=== PATIENT | female | born 1990 | race Caucasian/White ===

== ENCOUNTER 2017-09-04 02:48 | Inpatient (IN) | payer BC ==
[2017-09-04] MEDS: Lactated Ringers 1,000 ML IV SCH ×3 (03:15→07:22)
--- NOTE | 2017-09-04 03:15 | PCM.LDHP ---
L&D History of Present Illness - General Date of Service: 09/04/17 Admit Problem/Dx: Admission Diagnosis/Problem Admission Diagnosis/Problem 09/04/17 03:06 38-1/7 week intrauterine , active labor with advanced cervical dilation Source of Information: Patient History Limitations: Reports: No Limitations - History of Present Illness Introduction:: Nuris is a 27-year-old 1 para 0 white female was admitted into labor and delivery with contractions every 3 minutes and advanced cervical dilation of 5 cm, 95% effaced, 0 station, anterior, very soft, bulging bag of hammond. She started in labor last evening and is continued and progressed to the present at which time she is very uncomfortable. 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 Her course was relatively unremarkable. She has a history of asthma but this was stable during the . She plans to breast-feed. She was a centering patient. She declined genetic evaluation. Her group B strep screen was negative. She is desiring an epidural in labor and delivery. She received her flu shot on 2016, T dap was given on 07/01/2017. She is rubella immune First visit occurred on 02/26/2017 at 11 weeks gestational age. Patient was seen on a very regular basis over the course of in the centering program. Her weight was 125 at first visit and 163.4 at last visit for 39.4 pound weight gain. She made good fundal height growth and her vital signs were stable throughout the course. She was seen on 09/03/2017 and had a cervix which was dilated 3 cm, 90% effaced, very soft, -2 station and mid position. Laboratory testing and : Blood is O+. Antibody screen is negative. Hemoglobin on first visit was 13.9 g/dL. Platelets were 231,000 at that time. She is rubella immune. RPR is nonreactive. B surface antigen and HIV assays were negative as were the Chlamydia and gonorrhea tests. Her second trimester labs showed a hemoglobin of 11.5 g deciliter which time she was started on iron supplementation. Platelets are 193,000. Her 1 hour GTT was elevated at 151 and her 3 hour GTT was normal at 79 for fasting blood sugar, 100 for 1 hour, 96 for 2 hour and 50 843 hour. Her group B strep screen was negative. Allergies: Cefzil which causes a rash Medications: 1 Clindamycin phosphate 1% external gel applied to the face for acne twice a day when necessary new prepped 2. vitamins 3. Iron supplementation Past medical history: 1. Acne Past surgical history: 1. Sinus and wisdom teeth surgery Family history: Mother and father alive and well. Mom with miscarriage and demise. 2 brothers and 3 sisters 1 with fertility problems. Maternal grandmother is alive and well for age. Maternal grandfather is alive and well. Paternal grandmother is secondary to old age. Paternal grandfather is secondary to old age. Mom and grandmother have increased nausea from surgery. No anesthesia, bleeding, clotting or other problems noted in the family. Social history: Patient is . is Ariel Gaffney. Patient works in [employer] she does not use any significant loss of alcohol, drugs or tobacco. Review of systems: In general patient has no complaints. has gone well. 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 Changes associated with GI: Negative : Increased fundal height consistent with Neurological: Negative Musculoskeletal: Negative Physical exam: General the patient is a well-developed, well-nourished, pleasant female stated age in no acute distress. Blood pressure on last evaluation clinic was 118/82, weight was 163.4 with pregravid weight of 125. Her height is 5 feet 3. Pregravid body mass index is 22.1 Skin is warm and dry without lesions. HEENT, neck and back within normal limits Lungs are clear with good breath sounds [place]. Cardiovascular exam shows regular rate and rhythm without murmurs. Breast exam is deferred having been done at first visit and found to be normal. Abdomen is protuberant with fundal height of 38 cm, baby in vertex presentation. Cervical exam shows 4 cm dilation/95% effaced/very soft/anterior/0 station. Extremities neurological exam are grossly within normal limits. - Related Data Allergies/Adverse Reactions: Allergies Allergy/AdvReac Type Severity Reaction Status Date / Time No Known Allergies Allergy Verified 08/07/17 21:48 H&P Review of Systems - Review of Systems: Review Of Systems: See Below L&D Exam - Exam Exam: See Below Problem List Initiated/Reviewed/Updated: Yes Assessment/Plan Comment:: Assessment: 1. 38-7 week intrauterine , active labor, advanced cervical dilation 2. Group B strep screen negative 3. Patient desire an epidural for labor analgesia 4. Patient plans to breast-feed 5. Patient is rubella immune 6. Patient has had her flu shot and her T-dap Plan: 1. Anticipate normal spontaneous vaginal delivery 2. Epidural for analgesia 3. Support breast feeding decision.
[2017-09-04] MEDS ORDERED: Lidocaine 1% 50 ML MDV INJECT ONE (03:17)
[2017-09-04] MEDS ORDERED: Sodium Chloride 0.9% 10 ML Syringe FLUSH PRN (03:17)
[2017-09-04] MEDS ORDERED: Nalbuphine 20 MG/1 ML Amp IVPUSH PRN (03:17)
[2017-09-04] MEDS ORDERED: Ondansetron 4 MG/2 ML SDV IVPUSH PRN (03:17)
[2017-09-04] MEDS ORDERED: Nalbuphine 20 MG/1 ML Amp ONE (03:23)
[2017-09-04] MEDS ORDERED: ePHEDrine 50 MG/ML SDV IVPUSH PRN (03:46)
[2017-09-04] MEDS ORDERED: diphenhydrAMINE 50 MG/ML SDV IVPUSH PRN (03:46)
[2017-09-04] MEDS ORDERED: fentaNYL 100 MCG/2 ML SDV EPIDUR PRN (03:46)
[2017-09-04] MEDS ORDERED: Oxytocin/Lactated Ringers 10 UNIT/1,000 ML BAG IV ONE (03:49)
[2017-09-04] MEDS ORDERED: Bupivacaine/fentaNYL/NS 100 ML Bag EPIDUR SCH (04:00)
--- NOTE | 2017-09-04 04:20 | PCM.PREANE ---
Preanesthetic Assessment - Anesthesia/Transfusion/Family Hx Anesthesia History: Prior Anesthesia Without Reaction Family History of Anesthesia Reaction: No Transfusion History: No Prior Transfusion(s) - Review of Systems General: No Symptoms Pulmonary: No Symptoms Cardiovascular: No Symptoms Gastrointestinal: No Symptoms Neurological: No Symptoms Other: Reports: None - Physical Assessment Pulse: 94 O2 Sat by Pulse Oximetry: 98 Respiratory Rate: 22 Blood Pressure: 124/63 Temperature: 36.3 C ASA Class: 2 Mental Status: Alert & Oriented x3 Airway Class: Mallampati = 1 Dentition: Reports: Normal Dentition Thyro-Mental Finger Breadths: 3 Mouth Opening Finger Breadths: 3 ROM/Head Extension: Full Lungs: Clear to Auscultation, Normal Respiratory Effort Cardiovascular: Regular Rate, Regular Rhythm, No Murmurs - Lab Values: Laboratory Last Values WBC 14.57 K/mm3 (3.98-10.04) H 09/04/17 03:20 RBC 4.19 M/mm3 (3.98-5.22) 09/04/17 03:20 Hgb 12.6 gm/L (11.2-15.7) 09/04/17 03:20 Hct 37.5 % (34.1-44.9) 09/04/17 03:20 MCV 89.5 fl (79.4-94.8) 09/04/17 03:20 MCH 30.1 pg (25.6-32.2) 09/04/17 03:20 MCHC 33.6 g/dl (32.2-35.5) 09/04/17 03:20 RDW Std Deviation 45.1 fL (36.4-46.3) 09/04/17 03:20 Plt Count 179 K/mm3 (182-369) L 09/04/17 03:20 MPV 9.7 fl (9.4-12.3) 09/04/17 03:20 Neut % (Auto) 77.5 % (34.0-71.1) H 09/04/17 03:20 Lymph % (Auto) 13.8 % (19.3-51.7) L 09/04/17 03:20 [place] % (Auto) 7.2 % (4.7-12.5) 09/04/17 03:20 Eos % (Auto) 1.0 (0.7-5.8) 09/04/17 03:20 Baso % (Auto) 0.1 % (0.1-1.2) 09/04/17 03:20 Neut # (Auto) 11.30 K/mm3 (1.56-6.13) H 09/04/17 03:20 Lymph # (Auto) 2.01 K/mm3 (1.18-3.74) 09/04/17 03:20 [place] # (Auto) 1.05 K/mm3 (0.24-0.36) H 09/04/17 03:20 Eos # (Auto) 0.14 K/mm3 (0.04-0.36) 09/04/17 03:20 Baso # (Auto) 0.01 K/mm3 (0.01-0.08) 09/04/17 03:20 - Allergies Allergies/Adverse Reactions: Allergies Allergy/AdvReac Type Severity Reaction Status Date / Time No Known Allergies Allergy Verified 08/07/17 21:48 - Anesthesia Plan Pre-Op Medication Ordered: None - Acknowledgements Anesthesia Type Planned: Epidural Pt an Appropriate Candidate for the Planned Anesthesia: Yes Alternatives and Risks of Anesthesia Discussed w Pt/Guardian: Yes Pt/Guardian Understands and Agrees with Anesthesia Plan: Yes PreAnesthesia Questionnaire Respiratory History: Reports: Asthma Gastrointestinal History: Reports: GERD - CURRENT (IN HOUSE) MEDS Current Meds: Current Medications Diphenhydramine HCl (Benadryl) 25 mg IVPUSH Q6H PRN PRN Reason: Itching Ephedrine Sulfate (Ephedrine Sulfate) 5 mg IVPUSH ASDIRECTED PRN PRN Reason: HYPOTENTSION Fentanyl (Sublimaze) 100 mcg EPIDUR Q3H PRN PRN Reason: PAIN Last Admin: 09/04/17 04:14 Dose: 100 mcg Fentanyl/Bupivacaine HCl (Fentanyl/Bupivacaine/Ns 2 Mcg-0.125% 100 Ml) 100 ml EPIDUR ASDIRECTED ERIN Last Admin: 09/04/17 04:15 Dose: 100 ml Lactated Ringer's (Ringers, Lactated) 1,000 mls @ 100 mls/hr IV ASDIRECTED ERIN Nalbuphine HCl (Nubain) 10 mg IVPUSH Q2H PRN PRN Reason: Pain (moderate 4-6) Ondansetron HCl (Zofran) 4 mg IVPUSH Q4H PRN PRN Reason: Nausea/Vomiting Sodium Chloride (Saline Flush) 10 ml FLUSH ASDIRECTED PRN PRN Reason: Keep Vein Open Discontinued Medications Oxytocin/Lactated Ringer's (Pitocin In Lr 10 Units/1,000 Ml) Confirm Administered Dose 10 unit in 1,000 mls @ as directed IV .STK-MED ONE Stop: 09/04/17 03:50 Lidocaine HCl (Xylocaine 1%) 10 ml INJECT ONETIME ONE Stop: 09/04/17 03:18 Nalbuphine HCl (Nubain) Confirm Administered Dose 20 mg .ROUTE .STK-MED ONE Stop: 09/04/17 03:24
--- NOTE | 2017-09-04 10:34 | PCM.SN ---
- Free Text/Narrative Note: Nuris is a 27-year-old 1 now para 1001 white female came in early in the a.m. of 09/04/2017 in active labor. She was 5 cm when she arrived. She is melany every 3 minutes. She had bulging bag of hammond. heart tones were reassuring. Artificial rupture membranes was undertaken and patient was found to have clear amniotic fluid. She progressed steadily and became complete at approximately 0810 hrs. She pushed for approximately 50 minutes at which time she delivered at 0900 hrs. on 09/04/2017. General female weighing 3250 g (7 pounds 2.6 ounces), 20.5 inches in length, Apgars of 8 and 9 in a direct occiput anterior position. She had a left vaginal laceration which extended to a first-degree perineal laceration. She had an epidural in place for analgesia. The vaginal perineal laceration were fixed in routine fashion using 3-0 Monocryl sutures. The epidural was adequate for anesthesia. Patient delivered her placenta intact, complete and normal in appearance. The umbilical cord had 3 vessels. As noted blood loss was 100 mL. Pitocin was used IV after the baby delivered to facilitate increase uterine tone and reduce risk of bleeding. Patient plans to breast-feed. Condition: Good
[2017-09-04] MEDS ORDERED: Acetaminophen 325 MG Tab PO PRN (10:50)
[2017-09-04] MEDS ORDERED: Witch Hazel Medicated Pads 100/Jar TOP PRN (10:50)
[2017-09-04] MEDS ORDERED: Benzocaine/Menthol 20%-0.5% Spray 56 GM Canister TOP PRN (10:50)
[2017-09-04] MEDS ORDERED: Lanolin 100% Cream 7 GM Tube TOP PRN (10:50)
[2017-09-04] MEDS ORDERED: Docusate Sodium 100 MG Cap PO PRN (10:50)
[2017-09-04] MEDS: Ibuprofen 600 MG Tab PO PRN (20:14)
[2017-09-04] MEDS ORDERED: Bupivacaine 0.25% 10 ML SDV ONE (22:22)
[2017-09-05] MEDS: Ibuprofen 600 MG Tab PO PRN (00:27)
--- NOTE | 2017-09-05 06:48 | PCM48HPAN ---
Post Anesthesia Note - EVALUATION WITHIN 48HRS OF ANESTHETIC Vital Signs in Normal Range: Yes Patient Participated in Evaluation: Yes Respiratory Function Stable: Yes Airway Patent: Yes Cardiovascular Function Stable: Yes Hydration Status Stable: Yes Pain Control Satisfactory: Yes Nausea and Vomiting Control Satisfactory: Yes Mental Status Recovered: Yes
[2017-09-05] MEDS ORDERED: Prenatal Multivitamin with Calcium/Folic Acid/Iron Tab PO SCH (09:00)
--- NOTE | 2017-09-06 07:38 | PCM.DCSUM1 ---
Discharge Summary - Hospital Course Free Text/Narrative:: Nuris is a 27-year-old 1 now para 1001 white female came in early in the a.m. of 09/04/2017 in active labor. She was 5 cm when she arrived. She is melany every 3 minutes. She had bulging bag of hammond. heart tones were reassuring. Artificial rupture membranes was undertaken and patient was found to have clear amniotic fluid. She progressed steadily and became complete at approximately 0810 hrs. She pushed for approximately 50 minutes at which time she delivered at 0900 hrs. on 09/04/2017. General female infant weighing 3250 g (7 pounds 2.6 ounces), 20.5 inches in length, Apgars of 8 and 9 in a direct occiput anterior position. She had a left vaginal laceration which extended to a first-degree perineal laceration. She had an epidural in place for analgesia. The vaginal perineal laceration were fixed in routine fashion using 3-0 Monocryl sutures. The epidural was adequate for anesthesia. Patient delivered her placenta intact, complete and normal in appearance. The umbilical cord had 3 vessels. As noted blood loss was 100 mL. Pitocin was used IV after the baby delivered to facilitate increase uterine tone and reduce risk of bleeding. Patient plans to breast-feed. patient is done well. Her hemoglobin is come back at 10.3 and her platelets are 169. She's been afebrile, vital signs stable. She is nursing well , voiding without concerns and ambulating without problems. She is desiring to be discharged. - Discharge Data Discharge Date: 09/06/17 Discharge Disposition: Home, Self-Care 01 Condition: Good - Patient Instructions Diet: Regular Diet as Tolerated (Nursing diet was increased calories and calcium as recommended) Activity: As Tolerated (No intercourse or tampons until bleeding resolves) Driving: May Drive Today Showering/Bathing: May Shower Notify Provider of: Fever, Increased Pain, Swelling and Redness, Nausea and/or Vomiting - Discharge Plan Home Medications: Home Meds Ibuprofen [IJD: Ibuprofen] 600 mg PO Q4H PRN tablet 09/06/17 [Rx] Vit with Ca/FA/Iron [ Plus Iron] 1 each PO DAILY tablet [Rx] Referrals: Melvin Burk MD [Primary Care Provider] - [facility] - Discharge Summary/Plan Comment DC Time >30 min.: No Discharge Summary/Plan Comment: Discharge instructions: 1. Discharge home 2. Diet, activity and follow-up discussed with patient. Recommend nursing diet with increased calories and calcium. 3. Precautions given concern increased pain, bleeding, temperature, signs/ symptoms of DVT/PE. 4. Medications per home medication was printed, discussed with and given to the patient. 5. [facility] Diagnosis: Term -delivered Condition: Good - Patient Data Vitals - Most Recent: Last Vital Signs Temp 36.7 C 09/06/17 04:22 Pulse 57 L 09/06/17 04:22 Resp 12 09/06/17 04:22 BP 132/76 09/06/17 04:22 Pulse Ox 98 09/06/17 04:22 Weight - Most Recent: 74.389 kg Med Orders - Current: Current Medications Acetaminophen (Tylenol) 650 mg PO Q4H PRN PRN Reason: mild pain or fever Benzocaine/Menthol (Dermoplast Pain Relief [place]) 0 gm TOP ASDIRECTED PRN PRN Reason: Perineal Comfort Measure Last Admin: 09/04/17 11:56 Dose: 1 spray Docusate Sodium (Colace) 100 mg PO BID PRN PRN Reason: Constipation Emollient Ointment (Lansinoh Hpa) 0 gm TOP ASDIRECTED PRN PRN Reason: Sore Nipples Ibuprofen (Motrin) 600 mg PO Q4H PRN PRN Reason: Mild pain or fever Last Admin: 09/05/17 00:27 Dose: 600 mg Prenat Multivit/[place]/Iron/Folic Ac ( Plus Iron) 1 each PO DAILY ERIN [place] (Tucks) 1 pad TOP ASDIRECTED PRN PRN Reason: Hemorrhoid pain Last Admin: 09/04/17 11:56 Dose: 1 pad Discontinued Medications Diphenhydramine HCl (Benadryl) 25 mg IVPUSH Q6H PRN PRN Reason: Itching Ephedrine Sulfate (Ephedrine Sulfate) 5 mg IVPUSH ASDIRECTED PRN PRN Reason: HYPOTENTSION Fentanyl (Sublimaze) 100 mcg EPIDUR Q3H PRN PRN Reason: PAIN Last Admin: 09/04/17 04:14 Dose: 100 mcg Fentanyl/Bupivacaine HCl (Fentanyl/Bupivacaine/Ns 2 Mcg-0.125% 100 Ml) 100 ml EPIDUR ASDIRECTED [facility] Last Admin: 09/04/17 04:15 Dose: 100 ml Lactated Ringer's (Ringers, Lactated) 1,000 mls @ 100 mls/hr IV ASDIRECTED [facility] Last Admin: 09/04/17 07:22 Dose: 100 mls/hr Oxytocin/Lactated Ringer's (Pitocin In Lr 10 Units/1,000 Ml) Confirm Administered Dose 10 unit in 1,000 mls @ as directed IV .STK-MED ONE Stop: 09/04/17 03:50 Last Admin: 09/04/17 04:26 Dose: Not Given Lidocaine HCl (Xylocaine 1%) 10 ml INJECT ONETIME ONE Stop: 09/04/17 03:18 Nalbuphine HCl (Nubain) 10 mg IVPUSH Q2H PRN PRN Reason: Pain (moderate 4-6) Last Admin: 09/04/17 04:27 Dose: 10 mg Nalbuphine HCl (Nubain) Confirm Administered Dose 20 mg .ROUTE .STK-MED ONE Stop: 09/04/17 03:24 Last Admin: 09/04/17 04:26 Dose: Not Given Ondansetron HCl (Zofran) 4 mg IVPUSH Q4H PRN PRN Reason: Nausea/Vomiting Sodium Chloride (Saline Flush) 10 ml FLUSH ASDIRECTED PRN PRN Reason: Keep Vein Open *Q Meaningful Use (DIS) - VTE *Q VTE Criteria *Q: - Stroke *Q Stroke Criteria *Q: - AMI *Q AMI Criteria *Q:
== END 2017-09-06 15:12 | disposition home or self-care (01) | DRG 560 ==
LOC: JD.OBCHECK 02:48 → JD.OB 02:58 → JD.OBCHECK 03:06 → JD.MS 09:00 → OBSVTOIN 09:00 → JD.OB 09:00
PROVIDERS: ADMIT Obstetrics & Gynecology; ATTEND Obstetrics & Gynecology
PROC: 10E0XZZ Delivery of Products of Conception, External Approach (ICD-10-PCS; principal; 2017-09-04)
PROC: 0UQGXZZ Repair Vagina, External Approach (ICD-10-PCS; 2017-09-04)
PROC: 10907ZC Drainage of Amniotic Fluid, Therapeutic from Products of Conception, Via Natural or Artificial Opening (ICD-10-PCS; 2017-09-04)
PROC: 00HU33Z Insertion of Infusion Device into Spinal Canal, Percutaneous Approach (ICD-10-PCS; 2017-09-04)
PROC: 3E0R3BZ Introduction of Anesthetic Agent into Spinal Canal, Percutaneous Approach (ICD-10-PCS; 2017-09-04)
DX: O70.0 First degree perineal laceration during delivery (principal); O69.2XX0 Labor and delivery complicated by other cord entanglement, with compression, not applicable or unspecified; Z3A.38 38 weeks gestation of pregnancy; Z37.0 Single live birth
CPT/HCPCS: 01967; 36415; 51702; 59300; 59409; 85025; 85027; A9270-GY; J2300; J3010; J7120

== ENCOUNTER 2021-01-10 03:43 | Inpatient (IN) | payer BC ==
[~2021-01-10 03:43] MED LIST: Bupivacaine 0.25% 10 ML SDV ONE
[2021-01-10] MEDS ORDERED: Oxytocin/Lactated Ringers 10 UNIT/1,000 ML BAG IV SCH ×2 (04:00)
[2021-01-10] MEDS ORDERED: Ondansetron 4 MG/2 ML SDV IVPUSH PRN (04:00)
[2021-01-10] MEDS ORDERED: Nalbuphine 10 MG/1 ML Vial IVPUSH PRN (04:00)
[2021-01-10] MEDS ORDERED: Sodium Chloride 0.9% 10 ML Syringe FLUSH PRN (04:00)
[2021-01-10] MEDS ORDERED: Lidocaine 1% 50 ML MDV INJECT ONE (04:00)
[2021-01-10] MEDS ORDERED: Bupivacaine/fentaNYL/NS 100 ML Bag ONE (04:26)
[2021-01-10] MEDS ORDERED: fentaNYL 100 MCG/2 ML SDV ONE (04:26)
[2021-01-10] MEDS ORDERED: fentaNYL 100 MCG/2 ML SDV EPIDUR PRN (04:36)
[2021-01-10] MEDS ORDERED: Bupivacaine/fentaNYL/NS 100 ML Bag EPIDUR PRN (04:36)
[2021-01-10] MEDS ORDERED: ePHEDrine 50 MG/ML SDV IVPUSH PRN (04:36)
[2021-01-10] MEDS ORDERED: diphenhydrAMINE 50 MG/ML SDV IVPUSH PRN (04:36)
[2021-01-10] MEDS: Lactated Ringers 1,000 ML IV SCH ×2 (04:42→04:45)
--- NOTE | 2021-01-10 05:00 | PCM.PREANE ---
Preanesthetic Assessment - Procedure Proposed Procedure: trevor - Anesthesia/Transfusion/Family Hx Anesthesia History: Prior Anesthesia Reaction Type of Anesthesia Reaction: Excessive Nausea/Vomiting Family History of Anesthesia Reaction: No Transfusion History: No Prior Transfusion(s) - Review of Systems General: No Symptoms Pulmonary: No Symptoms Cardiovascular: No Symptoms Gastrointestinal: No Symptoms Neurological: No Symptoms Other: Reports: None - Physical Assessment Height: 5 ft 3 in Weight: 71.033 kg ASA Class: 2 Mental Status: Alert & Oriented x3 Airway Class: Mallampati = 1 Dentition: Reports: Normal Dentition Thyro-Mental Finger Breadths: 3 Mouth Opening Finger Breadths: 3 ROM/Head Extension: Full Lungs: Clear to Auscultation, Normal Respiratory Effort Cardiovascular: Regular Rate, Regular Rhythm - Lab Values: Laboratory Last Values WBC 11.35 K/mm3 (3.98-10.04) H 01/10/21 04:06 RBC 4.11 M/mm3 (3.98-5.22) 01/10/21 04:06 Hgb 9.9 gm/dl (11.2-15.7) L 01/10/21 04:06 Hct 32.6 % (34.1-44.9) L 01/10/21 04:06 MCV 79.3 fl (79.4-94.8) L D 01/10/21 04:06 MCH 24.1 pg (25.6-32.2) L 01/10/21 04:06 MCHC 30.4 g/dl (32.2-35.5) L 01/10/21 04:06 RDW Std Deviation 42.9 fL (36.4-46.3) 01/10/21 04:06 Plt Count 221 K/mm3 (182-369) 01/10/21 04:06 MPV 9.6 fl (9.4-12.3) 01/10/21 04:06 Neut % (Auto) 73.4 % (34.0-71.1) H 01/10/21 04:06 Lymph % (Auto) 16.9 % (19.3-51.7) L 01/10/21 04:06 [place] % (Auto) 7.2 % (4.7-12.5) 01/10/21 04:06 Eos % (Auto) 1.3 (0.7-5.8) 01/10/21 04:06 Baso % (Auto) 0.2 % (0.1-1.2) 01/10/21 04:06 Neut # (Auto) 8.33 K/mm3 (1.56-6.13) H 01/10/21 04:06 Lymph # (Auto) 1.92 K/mm3 (1.18-3.74) 01/10/21 04:06 [place] # (Auto) 0.82 K/mm3 (0.24-0.36) H 01/10/21 04:06 Eos # (Auto) 0.15 K/mm3 (0.04-0.36) 01/10/21 04:06 Baso # (Auto) 0.02 K/mm3 (0.01-0.08) 01/10/21 04:06 - Allergies Allergies/Adverse Reactions: Allergies Allergy/AdvReac Type Severity Reaction Status Date / Time cefprozil [From Cefzil] Allergy Rash Verified 04/26/19 05:36 - Blood Blood Available: No - Acknowledgements Anesthesia Type Planned: Epidural Pt an Appropriate Candidate for the Planned Anesthesia: Yes Alternatives and Risks of Anesthesia Discussed w Pt/Guardian: Yes Pt/Guardian Understands and Agrees with Anesthesia Plan: Yes PreAnesthesia Questionnaire - Past Health History Medical/Surgical History: Denies Medical/Surgical History Cardiovascular History: Reports: None Respiratory History: Reports: Asthma (sports induced) Gastrointestinal History: Reports: GERD 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: , Spontaneous : 4 Para: 2 - Past Surgical History HEENT Surgical History: Reports: Naso-Sinus Surgery, Oral Surgery - SUBSTANCE USE Tobacco Use Status *Q: Never Tobacco User Tobacco Use Within Last Twelve Months: No Second Hand Smoke Exposure: No Days Per Week of Alcohol Use: 0 Recreational Drug Use History: No - HOME MEDS Home Medications: Home Meds Vit with Ca/FA/Iron [ Plus Iron] 1 each PO DAILY tablet 09/06/17 [Rx] Docusate Sodium [Colace] 100 mg PO BID PRN cap 04/26/19 [Rx] Ibuprofen [Motrin] 600 mg PO Q6H PRN tablet 04/26/19 [Rx] - CURRENT (IN HOUSE) MEDS Current Meds: Current Medications Diphenhydramine HCl (Diphenhydramine 50 Mg/Ml Sdv) 25 mg IVPUSH Q6H PRN PRN Reason: pruritis Ephedrine Sulfate (Ephedrine 50 Mg/Ml Sdv) 5 mg IVPUSH ASDIRECTED PRN PRN Reason: Hypotension Fentanyl (Fentanyl 100 Mcg/2 Ml Sdv) 100 mcg EPIDUR Q3H PRN PRN Reason: Pain Last Admin: 01/10/21 04:41 Dose: 100 mcg Documented by: Fentanyl/Bupivacaine HCl (Bupivacaine/Fentanyl/Ns 100 Ml Bag) 100 ml EPIDUR ASDIRECTED PRN PRN Reason: Pain Last Admin: 01/10/21 04:42 Dose: 100 ml Documented by: Lactated Ringer's (Ringers, Lactated) 1,000 mls @ 100 mls/hr IV ASDIRECTED ERIN Last Admin: 01/10/21 04:45 Dose: 100 mls/hr Documented by: Oxytocin/Lactated Ringer's (Pitocin In Lr 10 Units/1,000 Ml) 10 unit in 1,000 mls @ 500 mls/hr IV .CONTINUOUS ERIN Oxytocin/Lactated Ringer's (Pitocin In Lr 10 Units/1,000 Ml) 10 unit in 1,000 m ls @ 12 mls/hr IV TITRATE ERIN; Protocol Nalbuphine HCl (Nalbuphine 10 Mg/1 Ml Vial) 10 mg IVPUSH Q2H PRN PRN Reason: Pain Ondansetron HCl (Ondansetron 4 Mg/2 Ml Sdv) 4 mg IVPUSH Q4H PRN PRN Reason: Nausea/Vomiting Sodium Chloride (Sodium Chloride 0.9% 10 Ml Syringe) 10 ml FLUSH ASDIRECTED PRN PRN Reason: Keep Vein Open Discontinued Medications Fentanyl (Fentanyl 100 Mcg/2 Ml Sdv) Confirm Administered Dose 100 mcg .ROUTE .STK-MED ONE Stop: 01/10/21 04:27 Fentanyl/Bupivacaine HCl (Bupivacaine/Fentanyl/Ns 100 Ml Bag) Confirm Administered Dose 100 ml .ROUTE .STK-MED ONE Stop: 01/10/21 04:27 Lidocaine HCl (Lidocaine 1% 50 Ml Mdv) 1 ml INJECT ONETIME ONE Stop: 01/10/21 04:01
--- NOTE | 2021-01-10 05:10 | PCM.LDHP ---
L&D History of Present Illness - General Date of Service: 01/10/21 Admit Problem/Dx: Patient Status Order with Admit Dx/Problem 01/10/21 03:50 Patient Status [ADT] Routine Admission Diagnosis/Problem Admission Diagnosis/Problem Labor without complication Source of Information: Patient History Limitations: Reports: No Limitations - History of Present Illness Introduction:: 30-year-old -0-1-2 VIKTOR 01/24/2021 estimated gestational age 38 weeks 0 days presented to labor delivery with contractions every 2 to 3 minutes and 6 cm dilated. Epidural has been placed patient anticipates vaginal delivery. 08/23/2020 blood type O+, antibody screen negative, hemoglobin/hematocrit 13.4/40.9, platelets 237,000, Pap test negative on 06/30/2020. Rubella immune serology nonreactive urine culture mixed karina HIV and hepatitis B surface an tigen negative Chlamydia GC probe negative on 06/30/2020 11/25/2020 hemoglobin/hematocrit 10.2/33.7 platelets 234,001-hour OB glucose screen 165 12/20/2020 testing blood sugar 89, 1 hour 170, 2-hour 143, 3-hour 94. Group B strep - 12/26/2020. Plan delivery. Pain Score: 8 Improves with: Reports: None Worsens with: Reports: None Associated Symptoms: Reports: N - Related Data Allergies/Adverse Reactions: Allergies Allergy/AdvReac Type Severity Reaction Status Date / Time cefprozil [From Cefzil] Allergy Rash Verified 04/26/19 05:36 Home Medications: Home Meds Vit with Ca/FA/Iron [ Plus Iron] 1 each PO DAILY tablet 09/06/17 [Rx] Docusate Sodium [Colace] 100 mg PO BID PRN cap 04/26/19 [Rx] Ibuprofen [Motrin] 600 mg PO Q6H PRN tablet 04/26/19 [Rx] Past Medical History - Past Health History Medical/Surgical History: Denies Medical/Surgical History Cardiovascular History: Reports: None Respiratory History: Reports: Asthma (sports induced) Gastrointestinal History: Reports: GERD [employer] History: Reports: , Spontaneous - Past Surgical History HEENT Surgical History: Reports: Naso-Sinus Surgery, Oral Surgery Social & Family History - Family History Family Medical History: No Pertinent Family History - Tobacco Use Tobacco Use Status *Q: Never Tobacco User Second Hand Smoke Exposure: No - Caffeine Use Caffeine Use: Reports: None - Alcohol Use Days Per Week of Alcohol Use: 0 - Recreational Drug Use Recreational Drug Use: No H&P Review of Systems - Review of Systems: Review Of Systems: See Below General: Reports: No Symptoms HEENT: Reports: No Symptoms Pulmonary: Reports: No Symptoms Cardiovascular: Reports: No Symptoms Gastrointestinal: Reports: No Symptoms Genitourinary: Reports: No Symptoms Musculoskeletal: Reports: No Symptoms Skin: Reports: No Symptoms Psychiatric: Reports: No Symptoms Neurological: Reports: No Symptoms Hematologic/Lymphatic: Reports: No Symptoms Immunologic: Reports: No Symptoms L&D Exam - Exam Exam: See Below - Vital Signs Weight: 156 lb 9.6 oz - OB Specific Fundal Height In cm: 38 Contraction Duration (sec): 60 Contraction Frequency (min): 2 Contraction Intensity: Moderate Movement: Active Heart Tones: Present Heart Tones per Min: 140 Heart Rate (FHR) Variability: Moderate (6-25 bmp) Presentation: Vertex - [place] Score K[place]ney Score Cervix Position: Anterior [place] Score Effacement: >80% [place] Score Dilation: > 5 cm [place] Score 's Station: -1 ,0 - Exam General: Alert, Oriented HEENT: Conjunctiva Clear, Mucosa Moist & [place] Neck: Supple, Trachea Midline Lungs: Clear to Auscultation, Normal Respiratory Effort Cardiovascular: Regular Rate, Regular Rhythm GI/Abdominal Exam: Soft Genitourinary: Normal external exam Extremities: Normal Inspection, Non-Tender, No Pedal Edema, Normal Capillary Refill Skin: Warm, Dry, Intact Psychiatric: Alert, Normal Affect, Normal Mood - Patient Data Lab Results Last 24 hrs: Laboratory Results - last 24 hr 01/10/21 Range/Units 04:06 WBC 11.35 H (3.98-10.04) K/mm3 RBC 4.11 (3.98-5.22) M/mm3 Hgb 9.9 L (11.2-15.7) gm/dl Hct 32.6 L (34.1-44.9) % MCV 79.3 L D (79.4-94.8) fl MCH 24.1 L (25.6-32.2) pg MCHC 30.4 L (32.2-35.5) g/dl RDW Std Deviation 42.9 (36.4-46.3) fL Plt Count 221 (182-369) K/mm3 MPV 9.6 (9.4-12.3) fl Neut % (Auto) 73.4 H (34.0-71.1) % Lymph % (Auto) 16.9 L (19.3-51.7) % [place] % (Auto) 7.2 (4.7-12.5) % Eos % (Auto) 1.3 (0.7-5.8) Baso % (Auto) 0.2 (0.1-1.2) % Neut # (Auto) 8.33 H (1.56-6.13) K/mm3 Lymph # (Auto) 1.92 (1.18-3.74) K/mm3 [place] # (Auto) 0.82 H (0.24-0.36) K/mm3 Eos # (Auto) 0.15 (0.04-0.36) K/mm3 Baso # (Auto) 0.02 (0.01-0.08) K/mm3 Result Diagrams: 01/10/21 04:06 - Problem List (1) 38 weeks gestation of SNOMED Code(s): 42837779 ICD Code: Z3A.38 - 38 WEEKS GESTATION OF Status: Acute Current Visit: No Problem List Initiated/Reviewed/Updated: No Orders Last 24hrs: Active Orders 24 hr Category Date Time Status Patient Status [ADT] Routine ADT 01/10/21 03:50 Active Activity as Tolerated [RC] PFP Care 01/10/21 04:01 Active Communication Order [RC] ASDIRECTED Care 01/10/21 04:01 Active Heart Tones [RC] ASDIRECTED Care 01/10/21 04:01 Active Non Stress Test [RC] PER UNIT ROUTINE Care 01/10/21 03:50 Active Notify Provider [RC] ASDIRECTED Care 01/10/21 04:36 Active Notify Provider [RC] PFP Care 01/10/21 04:01 Active Notify Provider [RC] PRN Care 01/10/21 04:01 Active Peripheral IV Care [RC] . DIRECTED Care 01/10/21 04:01 Active Vital Signs [RC] PER UNIT ROUTINE Care 01/10/21 03:50 Active Regular Diet [DIET] Diet 01/10/21 Breakfast Active CBC WITH AUTO DIFF [HEME] Stat Lab 01/10/21 04:06 Results CORONAVIRUS COVID-19 GEOFF [MOLEC] Stat Lab 01/10/21 04:03 Received RAPID PLASMA REAGIN,RPR [CHEM] Routine Lab 01/10/21 04:06 Received TYPE AND SCREEN [BBK] Stat Lab 01/10/21 04:06 Received Bupivacaine/fentaNYL/NS [fentaNYL/Bupivacaine/NS 2 MCG- Med 01/10/21 04:36 Active 0.125% 100 ML] 100 ml EPIDUR ASDIRECTED PRN Lactated Ringers [Ringers, Lactated] 1,000 ml Med 01/10/21 04:00 Active IV ASDIRECTED Nalbuphine [Nubain] Med 01/10/21 04:00 Active 10 mg IVPUSH Q2H PRN Ondansetron [Zofran] Med 01/10/21 04:00 Active 4 mg IVPUSH Q4H PRN Oxytocin/Lactated Ringers [Pitocin in LR 10 Units/1,000 Med 01/10/21 04:00 Active ML] 10 unit in 1,000 ml IV .CONTINUOUS Oxytocin/Lactated Ringers [Pitocin in LR 10 Units/1,000 Med 01/10/21 04:00 Active ML] 10 unit in 1,000 ml IV TITRATE Sodium Chloride 0.9% [Saline Flush] Med 01/10/21 04:00 Active 10 ml FLUSH ASDIRECTED PRN diphenhydrAMINE [Benadryl] Med 01/10/21 04:36 Active 25 mg IVPUSH Q6H PRN ePHEDrine [ePHEDrine sulfate] Med 01/10/21 04:36 Active 5 mg IVPUSH ASDIRECTED PRN fentaNYL [Sublimaze] Med 01/10/21 04:36 Active 100 mcg EPIDUR Q3H PRN Electronic Heart Tones Ext w TOCO [WOMSER] Oth 01/10/21 04:01 Ordered Routine Electronic Heart Tones Internal [WOMSER] Per Unit Oth 01/10/21 04:01 Ordered Routine Peripheral IV Insertion Adult [OM.PC] Routine Oth 01/10/21 04:01 Ordered Resuscitation Status Routine Resus Stat 01/10/21 03:50 Ordered Medication Orders Diphenhydramine HCl (Diphenhydramine 50 Mg/Ml Sdv) 25 mg IVPUSH Q6H PRN PRN Reason: pruritis Ephedrine Sulfate (Ephedrine 50 Mg/Ml Sdv) 5 mg IVPUSH ASDIRECTED PRN PRN Reason: Hypotension Fentanyl (Fentanyl 100 Mcg/2 Ml Sdv) 100 mcg EPIDUR Q3H PRN PRN Reason: Pain Last Admin: 01/10/21 04:41 Dose: 100 mcg Documented by: KAVYA Fentanyl/Bupivacaine HCl (Bupivacaine/Fentanyl/Ns 100 Ml Bag) 100 ml EPIDUR ASDIRECTED PRN PRN Reason: Pain Last Admin: 01/10/21 04:42 Dose: 100 ml Documented by: KAVAY Lactated Ringer's (Ringers, Lactated) 1,000 mls @ 100 mls/hr IV ASDIRECTED ERIN Last Admin: 01/10/21 04:45 Dose: 100 mls/hr Documented by: Infusion: 01/10/21 04:45 Dose: 100 mls/hr Documented by: Admin: 01/10/21 04:42 Dose: 100 mls/hr Documented by: KAVYA Oxytocin/Lactated Ringer's (Pitocin In Lr 10 Units/1,000 Ml) 10 unit in 1,000 mls @ 500 mls/hr IV .CONTINUOUS ERIN Oxytocin/Lactated Ringer's (Pitocin In Lr 10 Units/1,000 Ml) 10 unit in 1,000 mls @ 12 mls/hr IV TITRATE ERIN; Protocol Nalbuphine HCl (Nalbuphine 10 Mg/1 Ml Vial) 10 mg IVPUSH Q2H PRN PRN Reason: Pain Ondansetron HCl (Ondansetron 4 Mg/2 Ml Sdv) 4 mg IVPUSH Q4H PRN PRN Reason: Nausea/Vomiting Sodium Chloride (Sodium Chloride 0.9% 10 Ml Syringe) 10 ml FLUSH ASDIRECTED PRN PRN Reason: Keep Vein Open Assessment/Plan Comment:: Plan delivery
--- NOTE | 2021-01-10 05:21 | PCM.SN.2 ---
- Free Text/Narrative Note: Amniotomy performed 0515 hrs. clear fluid, cervix around left. Epidural in place functioning well.
--- NOTE | 2021-01-10 06:59 | PCM.DEL ---
L & D Note - General Info Date of Service: 01/10/21 Mother's Due Date: 01/24/21 - Delivery Note Labor: Spontaneous, Augmented by ARM Delivery Outcome: Livebirth (Male liveborn 01/10/2021 at 0640 hrs. weight 3050 g 6 pounds 11.6 ounces Apgars 8/9 SONU) Infant Delivery Method: Spontaneous Vaginal Delivery-Single Infant Delivery Mode: Spontaneous Presentation: Left Occiput Anterior (SONU) Nuchal Cord: None Prep: Povidone-Iodine (Betadine Anesthesia Type: Epidural Episiotomy Type: None Laceration: None Placenta: Intact, Spontaneous (01/10/2021 0644 ) Estimated Blood Loss: 100 Resuscitation Needed: No [place]: Suctioned, Bulb Syringe, Stimulated, Warmed, [place] Used, Warmer Used Provider: Christian Acosta Score 1 min: 8 Score 5 min: 9 - General Info Date of Service: 01/10/21 Functional Status: Reports: Pain Controlled - Review of Systems General: Reports: No Symptoms HEENT: Reports: No Symptoms Pulmonary: Reports: No Symptoms Cardiovascular: Reports: No Symptoms Gastrointestinal: Reports: No Symptoms Genitourinary: Reports: No Symptoms Musculoskeletal: Reports: No Symptoms Skin: Reports: No Symptoms Neurological: Reports: No Symptoms Psychiatric: Reports: No Symptoms - Patient Data Vitals - Most Recent: Last Vital Signs Temp 98.6 F 01/10/21 03:50 Pulse 81 01/10/21 03:50 Resp 16 01/10/21 03:50 BP 134/82 01/10/21 03:50 Pulse Ox 100 01/10/21 03:50 Weight - Most Recent: 156 lb 9.6 oz Lab Results Last 24 Hours: Laboratory Results - last 24 hr 01/10/21 01/10/21 Range/Units 04:03 04:06 WBC 11.35 H (3.98-10.04) K/mm3 RBC 4.11 (3.98-5.22) M/mm3 Hgb 9.9 L (11.2-15.7) gm/dl Hct 32.6 L (34.1-44.9) % MCV 79.3 L D (79.4-94.8) fl MCH 24.1 L (25.6-32.2) pg MCHC 30.4 L (32.2-35.5) g/dl RDW Std Deviation 42.9 (36.4-46.3) fL Plt Count 221 (182-369) K/mm3 MPV 9.6 (9.4-12.3) fl Neut % (Auto) 73.4 H (34.0-71.1) % Lymph % (Auto) 16.9 L (19.3-51.7) % [place] % (Auto) 7.2 (4.7-12.5) % Eos % (Auto) 1.3 (0.7-5.8) Baso % (Auto) 0.2 (0.1-1.2) % Neut # (Auto) 8.33 H (1.56-6.13) K/mm3 Lymph # (Auto) 1.92 (1.18-3.74) K/mm3 [place] # (Auto) 0.82 H (0.24-0.36) K/mm3 Eos # (Auto) 0.15 (0.04-0.36) K/mm3 Baso # (Auto) 0.02 (0.01-0.08) K/mm3 Manual Slide Review Abnormal smear SARS-CoV-2 RNA (GEOFF) Negative (NEGATIVE) Med Orders - Current: Current Medications Diphenhydramine HCl (Diphenhydramine 50 Mg/Ml Sdv) 25 mg IVPUSH Q6H PRN PRN Reason: pruritis Ephedrine Sulfate (Ephedrine 50 Mg/Ml Sdv) 5 mg IVPUSH ASDIRECTED PRN PRN Reason: Hypotension Fentanyl (Fentanyl 100 Mcg/2 Ml Sdv) 100 mcg EPIDUR Q3H PRN PRN Reason: Pain Last Admin: 01/10/21 04:41 Dose: 100 mcg Documented by: Fentanyl/Bupivacaine HCl (Bupivacaine/Fentanyl/Ns 100 Ml Bag) 100 ml EPIDUR ASDIRECTED PRN PRN Reason: Pain Last Admin: 01/10/21 04:42 Dose: 100 ml Documented by: Lactated Ringer's (Ringers, Lactated) 1,000 mls @ 100 mls/hr IV ASDIRECTED ERIN Last Admin: 01/10/21 04:45 Dose: 100 mls/hr Documented by: Oxytocin/Lactated Ringer's (Pitocin In Lr 10 Units/1,000 Ml) 10 unit in 1,000 mls @ 500 mls/hr IV .CONTINUOUS ERIN Oxytocin/Lactated Ringer's (Pitocin In Lr 10 Units/1,000 Ml) 10 unit in 1,000 mls @ 12 mls/hr IV TITRATE ERIN; Protocol Nalbuphine HCl (Nalbuphine 10 Mg/1 Ml Vial) 10 mg IVPUSH Q2H PRN PRN Reason: Pain Ondansetron HCl (Ondansetron 4 Mg/2 Ml Sdv) 4 mg IVPUSH Q4H PRN PRN Reason: Nausea/Vomiting Sodium Chloride (Sodium Chloride 0.9% 10 Ml Syringe) 10 ml FLUSH ASDIRECTED PRN PRN Reason: Keep Vein Open Discontinued Medications Fentanyl (Fentanyl 100 Mcg/2 Ml Sdv) Confirm Administered Dose 100 mcg .ROUTE .STK-MED ONE Stop: 01/10/21 04:27 Fentanyl/Bupivacaine HCl (Bupivacaine/Fentanyl/Ns 100 Ml Bag) Confirm Administered Dose 100 ml .ROUTE .STK-MED ONE Stop: 01/10/21 04:27 Lidocaine HCl (Lidocaine 1% 50 Ml Mdv) 1 ml INJECT ONETIME ONE Stop: 01/10/21 04:01 - Exam General: Alert, Oriented HEENT: Pupils Equal, Mucous Membr. Moist/[place] Neck: Supple Lungs: Clear to Auscultation, Normal Respiratory Effort Cardiovascular: Regular Rate, Regular Rhythm GI/Abdominal Exam: Normal Bowel Sounds, Soft, Non-Tender (Female) Exam: Normal External Exam Extremities: Normal Inspection, Non-Tender, No Pedal Edema, Normal Capillary Refill Skin: Warm, Dry, Intact Psy/Mental Status: Alert, Normal Affect, Normal Mood - Problem List & Annotations (1) 38 weeks gestation of SNOMED Code(s): 60787647 Code(s): Z3A.38 - 38 WEEKS GESTATION OF Status: Acute Current Visit: No (2) Nuchal cord without compression, delivered, current hospitalization SNOMED Code(s): 08936818, 518606992 Code(s): O69.81X0 - LABOR AND DEL COMP BY CORD AROUND NECK, W/O COMPRSN, UNSP Status: Acute Current Visit: Yes (3) Vaginal delivery SNOMED Code(s): 229617492 Code(s): O80 - ENCOUNTER FOR FULL-TERM UNCOMPLICATED DELIVERY Status: Acute Current Visit: No - Problem List Review Problem List Initiated/Reviewed/Updated: No - My Orders Last 24 Hours: My Active Orders 01/10/21 04:00 Lactated Ringers [Ringers, Lactated] 1,000 ml IV ASDIRECTED Nalbuphine [Nubain] 10 mg IVPUSH Q2H PRN Ondansetron [Zofran] 4 mg IVPUSH Q4H PRN Oxytocin/Lactated Ringers [Pitocin in LR 10 Units/1,000 ML] 10 unit in 1,000 ml IV .CONTINUOUS Oxytocin/Lactated Ringers [Pitocin in LR 10 Units/1,000 ML] 10 unit in 1,000 ml IV TITRATE Sodium Chloride 0.9% [Saline Flush] 10 ml FLUSH ASDIRECTED PRN 01/10/21 04:01 Activity as Tolerated [RC] PFP Communication Order [RC] ASDIRECTED Heart Tones [RC] ASDIRECTED Notify Provider [RC] PFP Notify Provider [RC] PRN Peripheral IV Care [RC] . DIRECTED Electronic Heart Tones Ext w TOCO [WOMSER] Routine Electronic Heart Tones Internal [WOMSER] Per Unit Routine Peripheral IV Insertion Adult [OM.PC] Routine 01/10/21 04:06 RAPID PLASMA REAGIN,RPR [CHEM] Routine TYPE AND SCREEN [BBK] Stat 01/10/21 Breakfast Regular Diet [DIET] - Plan Plan:: Plan delivery
[2021-01-10] MEDS ORDERED: Ibuprofen 600 MG Tab PO PRN (07:32)
[2021-01-10] MEDS ORDERED: Acetaminophen 325 MG Tab PO PRN (07:32)
[2021-01-10] MEDS ORDERED: Docusate Sodium 100 MG Cap PO PRN (07:32)
[2021-01-10] MEDS ORDERED: Witch Hazel Medicated Pads 40/Jar TOP PRN (07:32)
[2021-01-10] MEDS ORDERED: Benzocaine/Menthol 20%-0.5% Spray 56 GM Canister TOP PRN (07:32)
--- NOTE | 2021-01-11 09:34 | PCM.DCSUM1 ---
Discharge Summary - Hospital Course Free Text/Narrative:: [place] [facility]IVE L/D Delivery Note Patient Name: ARUNA GAINES Date of : 88 Patient Status: Inpatient Attending Provider: Christian Acosta Date: 01/10/21 06:53 Initialization Date: 01/10/21 06:53 L & D Note - General Info Date of Service: 01/10/21 Mother's Due Date: 01/24/21 - Delivery Note Labor: Spontaneous, Augmented by ARM Delivery Outcome: Livebirth (Male liveborn 01/10/2021 at 0640 hrs. weight 3050 g 6 pounds 11.6 ounces Apgars 8/9 SONU) Infant Delivery Method: Spontaneous Vaginal Delivery-Single Infant Delivery Mode: Spontaneous Presentation: Left Occiput Anterior (SONU) Nuchal Cord: None Prep: Povidone-Iodine (Betadine Anesthesia Type: Epidural Episiotomy Type: None Laceration: None Placenta: Intact, Spontaneous (01/10/2021 0644 ) Estimated Blood Loss: 100 Resuscitation Needed: No [place]: Suctioned, Bulb Syringe, Stimulated, Warmed, [place] Used, Warmer Used Provider: Christian Acosta Score 1 min: 8 Score 5 min: 9 - General Info Date of Service: 01/10/21 Functional Status: Reports: Pain Controlled - Review of Systems General: Reports: No Symptoms HEENT: Reports: No Symptoms Pulmonary: Reports: No Symptoms Cardiovascular: Reports: No Symptoms Gastrointestinal: Reports: No Symptoms Genitourinary: Reports: No Symptoms Musculoskeletal: Reports: No Symptoms Skin: Reports: No Symptoms Neurological: Reports: No Symptoms Psychiatric: Reports: No Symptoms - Patient Data Vitals - Most Recent: Last Vital Signs Temp 98.6 F 01/10/21 03:50 Pulse 81 01/10/21 03:50 Resp 16 01/10/21 03:50 BP 134/82 01/10/21 03:50 Pulse Ox 100 01/10/21 03:50 Weight - Most Recent: 156 lb 9.6 oz Lab Results Last 24 Hours: Laboratory Results - last 24 hr 01/10/21 01/10/21 Range/Units 04:03 04:06 WBC 11.35 H (3.98-10.04) K/mm3 RBC 4.11 (3.98-5.22) M/mm3 Hgb 9.9 L (11.2-15.7) gm/dl Hct 32.6 L (34.1-44.9) % MCV 79.3 L D (79.4-94.8) fl MCH 24.1 L (25.6-32.2) pg MCHC 30.4 L (32.2-35.5) g/dl RDW Std Deviation 42.9 (36.4-46.3) fL Plt Count 221 (182-369) K/mm3 MPV 9.6 (9.4-12.3) fl Neut % (Auto) 73.4 H (34.0-71.1) % Lymph % (Auto) 16.9 L (19.3-51.7) % [place] % (Auto) 7.2 (4.7-12.5) % Eos % (Auto) 1.3 (0.7-5.8) Baso % (Auto) 0.2 (0.1-1.2) % Neut # (Auto) 8.33 H (1.56-6.13) K/mm3 Lymph # (Auto) 1.92 (1.18-3.74) K/mm3 [place] # (Auto) 0.82 H (0.24-0.36) K/mm3 Eos # (Auto) 0.15 (0.04-0.36) K/mm3 Baso # (Auto) 0.02 (0.01-0.08) K/mm3 Manual Slide Review Abnormal smear SARS-CoV-2 RNA (GEOFF) Negative (NEGATIVE) Med Orders - Current: Current Medications Diphenhydramine HCl (Diphenhydramine 50 Mg/Ml Sdv) 25 mg IVPUSH Q6H PRN PRN Reason: pruritis Ephedrine Sulfate (Ephedrine 50 Mg/Ml Sdv) 5 mg IVPUSH ASDIRECTED PRN PRN Reason: Hypotension Fentanyl (Fentanyl 100 Mcg/2 Ml Sdv) 100 mcg EPIDUR Q3H PRN PRN Reason: Pain Last Admin: 01/10/21 04:41 Dose: 100 mcg Documented by: Fentanyl/Bupivacaine HCl (Bupivacaine/Fentanyl/Ns 100 Ml Bag) 100 ml EPIDUR ASDIRECTED PRN PRN Reason: Pain Last Admin: 01/10/21 04:42 Dose: 100 ml Documented by: Lactated Ringer's (Ringers, Lactated) 1,000 mls @ 100 mls/hr IV ASDIRECTED ERIN Last Admin: 01/10/21 04:45 Dose: 100 mls/hr Documented by: Oxytocin/Lactated Ringer's (Pitocin In Lr 10 Units/1,000 Ml) 10 unit in 1,000 mls @ 500 mls/hr IV .CONTINUOUS ERIN Oxytocin/Lactated Ringer's (Pitocin In Lr 10 Units/1,000 Ml) 10 unit in 1,000 mls @ 12 mls/hr IV TITRATE ERIN; Protocol Nalbuphine HCl (Nalbuphine 10 Mg/1 Ml Vial) 10 mg IVPUSH Q2H PRN PRN Reason: Pain Ondansetron HCl (Ondansetron 4 Mg/2 Ml Sdv) 4 mg IVPUSH Q4H PRN PRN Reason: Nausea/Vomiting Sodium Chloride (Sodium Chloride 0.9% 10 Ml Syringe) 10 ml FLUSH ASDIRECTED PRN PRN Reason: Keep Vein Open Discontinued Medications Fentanyl (Fentanyl 100 Mcg/2 Ml Sdv) Confirm Administered Dose 100 mcg .ROUTE .STK-MED ONE Stop: 01/10/21 04:27 Fentanyl/Bupivacaine HCl (Bupivacaine/Fentanyl/Ns 100 Ml Bag) Confirm Administered Dose 100 ml .ROUTE .STK-MED ONE Stop: 01/10/21 04:27 Lidocaine HCl (Lidocaine 1% 50 Ml Mdv) 1 ml INJECT ONETIME ONE Stop: 01/10/21 04:01 - Exam General: Alert, Oriented HEENT: Pupils Equal, Mucous Membr. Moist/[place] Neck: Supple Lungs: Clear to Auscultation, Normal Respiratory Effort Cardiovascular: Regular Rate, Regular Rhythm GI/Abdominal Exam: Normal Bowel Sounds, Soft, Non-Tender (Female) Exam: Normal External Exam Extremities: Normal Inspection, Non-Tender, No Pedal Edema, Normal Capillary Refill Skin: Warm, Dry, Intact Psy/Mental Status: Alert, Normal Affect, Normal Mood - Problem List & Annotations (1) 38 weeks gestation of SNOMED Code(s): 99893084 Code(s): Z3A.38 - 38 WEEKS GESTATION OF Status: Acute Current Visit: No (2) Nuchal cord without compression, delivered, current hospitalization SNOMED Code(s): 73244222, 247743849 Code(s): O69.81X0 - LABOR AND DEL COMP BY CORD AROUND NECK, W/O COMPRSN, UNSP Status: Acute Current Visit: Yes (3) Vaginal delivery SNOMED Code(s): 871233030 Code(s): O80 - ENCOUNTER FOR FULL-TERM UNCOMPLICATED DELIVERY Status: Acute Current Visit: No - Problem List Review Problem List Initiated/Reviewed/Updated: No - My Orders Last 24 Hours: My Active Orders 01/10/21 04:00 Lactated Ringers [Ringers, Lactated] 1,000 ml IV ASDIRECTED Nalbuphine [Nubain] 10 mg IVPUSH Q2H PRN Ondansetron [Zofran] 4 mg IVPUSH Q4H PRN Oxytocin/Lactated Ringers [Pitocin in LR 10 Units/1,000 ML] 10 unit in 1,000 ml IV .CONTINUOUS Oxytocin/Lactated Ringers [Pitocin in LR 10 Units/1,000 ML] 10 unit in 1,000 ml IV TITRATE Sodium Chloride 0.9% [Saline Flush] 10 ml FLUSH ASDIRECTED PRN 01/10/21 04:01 Activity as Tolerated [RC] PFP Communication Order [RC] ASDIRECTED Heart Tones [RC] ASDIRECTED Notify Provider [RC] PFP Notify Provider [RC] PRN Peripheral IV Care [RC] . DIRECTED Electronic Heart Tones Ext w TOCO [WOMSER] Routine Electronic Heart Tones Internal [WOMSER] Per Unit Routine Peripheral IV Insertion Adult [OM.PC] Routine 01/10/21 04:06 RAPID PLASMA REAGIN,RPR [CHEM] Routine TYPE AND SCREEN [BBK] Stat 01/10/21 Breakfast Regular Diet [DIET] - Plan Plan:: Plan delivery HPI Initial Comments: [place] [facility] L/D Delivery Note Patient Name: ARUNA GAINES Date of : 88 Patient Status: Inpatient Attending Provider: Christian Acosta Date: 01/10/21 06:53 Initialization Date: 01/10/21 06:53 L & D Note - General Info Date of Service: 01/10/21 Mother's Due Date: 01/24/21 - Delivery Note Labor: Spontaneous, Augmented by ARM Delivery Outcome: Livebirth (Male liveborn 01/10/2021 at 0640 hrs. weight 3050 g 6 pounds 11.6 ounces Apgars 8/9 SONU) Delivery Method: Spontaneous Vaginal Delivery-Single Infant Delivery Mode: Spontaneous Presentation: Left Occiput Anterior (SONU) Nuchal Cord: None Prep: Povidone-Iodine (Betadine Anesthesia Type: Epidural Episiotomy Type: None Laceration: None Placenta: Intact, Spontaneous (01/10/2021 0644 ) Estimated Blood Loss: 100 Resuscitation Needed: No [place]: Suctioned, Bulb Syringe, Stimulated, Warmed, [place] Used, Warmer Used Provider: Christian Acosta Score 1 min: 8 Score 5 min: 9 - General Info Date of Service: 01/10/21 Functional Status: Reports: Pain Controlled - Review of Systems General: Reports: No Symptoms HEENT: Reports: No Symptoms Pulmonary: Reports: No Symptoms Cardiovascular: Reports: No Symptoms Gastrointestinal: Reports: No Symptoms Genitourinary: Reports: No Symptoms Musculoskeletal: Reports: No Symptoms Skin: Reports: No Symptoms Neurological: Reports: No Symptoms Psychiatric: Reports: No Symptoms - Patient Data Vitals - Most Recent: Last Vital Signs Temp 98.6 F 01/10/21 03:50 Pulse 81 01/10/21 03:50 Resp 16 01/10/21 03:50 BP 134/82 01/10/21 03:50 Pulse Ox 100 01/10/21 03:50 Weight - Most Recent: 156 lb 9.6 oz Lab Results Last 24 Hours: Laboratory Results - last 24 hr 01/10/21 01/10/21 Range/Units 04:03 04:06 WBC 11.35 H (3.98-10.04) K/mm3 RBC 4.11 (3.98-5.22) M/mm3 Hgb 9.9 L (11.2-15.7) gm/dl Hct 32.6 L (34.1-44.9) % MCV 79.3 L D (79.4-94.8) fl MCH 24.1 L (25.6-32.2) pg MCHC 30.4 L (32.2-35.5) g/dl RDW Std Deviation 42.9 (36.4-46.3) fL Plt Count 221 (182-369) K/mm3 MPV 9.6 (9.4-12.3) fl Neut % (Auto) 73.4 H (34.0-71.1) % Lymph % (Auto) 16.9 L (19.3-51.7) % [place] % (Auto) 7.2 (4.7-12.5) % Eos % (Auto) 1.3 (0.7-5.8) Baso % (Auto) 0.2 (0.1-1.2) % Neut # (Auto) 8.33 H (1.56-6.13) K/mm3 Lymph # (Auto) 1.92 (1.18-3.74) K/mm3 [place] # (Auto) 0.82 H (0.24-0.36) K/mm3 Eos # (Auto) 0.15 (0.04-0.36) K/mm3 Baso # (Auto) 0.02 (0.01-0.08) K/mm3 Manual Slide Review Abnormal smear SARS-CoV-2 RNA (GEOFF) Negative (NEGATIVE) Med Orders - Current: Current Medications Diphenhydramine HCl (Diphenhydramine 50 Mg/Ml Sdv) 25 mg IVPUSH Q6H PRN PRN Reason: pruritis Ephedrine Sulfate (Ephedrine 50 Mg/Ml Sdv) 5 mg IVPUSH ASDIRECTED PRN PRN Reason: Hypotension Fentanyl (Fentanyl 100 Mcg/2 Ml Sdv) 100 mcg EPIDUR Q3H PRN PRN Reason: Pain Last Admin: 01/10/21 04:41 Dose: 100 mcg Documented by: Fentanyl/Bupivacaine HCl (Bupivacaine/Fentanyl/Ns 100 Ml Bag) 100 ml EPIDUR ASDIRECTED PRN PRN Reason: Pain Last Admin: 01/10/21 04:42 Dose: 100 ml Documented by: Lactated Ringer's (Ringers, Lactated) 1,000 mls @ 100 mls/hr IV ASDIRECTED ERIN Last Admin: 01/10/21 04:45 Dose: 100 mls/hr Documented by: Oxytocin/Lactated Ringer's (Pitocin In Lr 10 Units/1,000 Ml) 10 unit in 1,000 mls @ 500 mls/hr IV .CONTINUOUS ERIN Oxytocin/Lactated Ringer's (Pitocin In Lr 10 Units/1,000 Ml) 10 unit in 1,000 mls @ 12 mls/hr IV TITRATE ERIN; Protocol Nalbuphine HCl (Nalbuphine 10 Mg/1 Ml Vial) 10 mg IVPUSH Q2H PRN PRN Reason: Pain Ondansetron HCl (Ondansetron 4 Mg/2 Ml Sdv) 4 mg IVPUSH Q4H PRN PRN Reason: Nausea/Vomiting Sodium Chloride (Sodium Chloride 0.9% 10 Ml Syringe) 10 ml FLUSH ASDIRECTED PRN PRN Reason: Keep Vein Open Discontinued Medications Fentanyl (Fentanyl 100 Mcg/2 Ml Sdv) Confirm Administered Dose 100 mcg .ROUTE .STK-MED ONE Stop: 01/10/21 04:27 Fentanyl/Bupivacaine HCl (Bupivacaine/Fentanyl/Ns 100 Ml Bag) Confirm Administered Dose 100 ml .ROUTE .STK-MED ONE Stop: 01/10/21 04:27 Lidocaine HCl (Lidocaine 1% 50 Ml Mdv) 1 ml INJECT ONETIME ONE Stop: 01/10/21 04:01 - Exam General: Alert, Oriented HEENT: Pupils Equal, Mucous Membr. Moist/[place] Neck: Supple Lungs: Clear to Auscultation, Normal Respiratory Effort Cardiovascular: Regular Rate, Regular Rhythm GI/Abdominal Exam: Normal Bowel Sounds, Soft, Non-Tender (Female) Exam: Normal External Exam Extremities: Normal Inspection, Non-Tender, No Pedal Edema, Normal Capillary Refill Skin: Warm, Dry, Intact Psy/Mental Status: Alert, Normal Affect, Normal Mood - Problem List & Annotations (1) 38 weeks gestation of SNOMED Code(s): 04486962 Code(s): Z3A.38 - 38 WEEKS GESTATION OF Status: Acute Current Visit: No (2) Nuchal cord without compression, delivered, current hospitalization SNOMED Code(s): 04840762, 335716384 Code(s): O69.81X0 - LABOR AND DEL COMP BY CORD AROUND NECK, W/O COMPRSN, UNSP Status: Acute Current Visit: Yes (3) Vaginal delivery SNOMED Code(s): 023362689 Code(s): O80 - ENCOUNTER FOR FULL-TERM UNCOMPLICATED DELIVERY Status: Acute Current Visit: No - Problem List Review Problem List Initiated/Reviewed/Updated: No - My Orders Last 24 Hours: My Active Orders 01/10/21 04:00 Lactated Ringers [Ringers, Lactated] 1,000 ml IV ASDIRECTED Nalbuphine [Nubain] 10 mg IVPUSH Q2H PRN Ondansetron [Zofran] 4 mg IVPUSH Q4H PRN Oxytocin/Lactated Ringers [Pitocin in LR 10 Units/1,000 ML] 10 unit in 1,000 ml IV .CONTINUOUS Oxytocin/Lactated Ringers [Pitocin in LR 10 Units/1,000 ML] 10 unit in 1,000 ml IV TITRATE Sodium Chloride 0.9% [Saline Flush] 10 ml FLUSH ASDIRECTED PRN 01/10/21 04:01 Activity as Tolerated [RC] PFP Communication Order [RC] ASDIRECTED Heart Tones [RC] ASDIRECTED Notify Provider [RC] PFP Notify Provider [RC] PRN Peripheral IV Care [RC] . DIRECTED Electronic Heart Tones Ext w TOCO [WOMSER] Routine Electronic Heart Tones Internal [WOMSER] Per Unit Routine Peripheral IV Insertion Adult [OM.PC] Routine 01/10/21 04:06 RAPID PLASMA REAGIN,RPR [CHEM] Routine TYPE AND SCREEN [BBK] Stat 01/10/21 Breakfast Regular Diet [DIET] - Plan Plan:: Plan delivery Brief History: [facility] LIVE . L/D Delivery Note. Patient Name: ARUNA GAINES [facility] Record Number: [id number]. Date of : 88Patient Status: Inpatient. Attending Provider: Christian Acosta Number: [id number]. Date: 01/10/21 06:53Initialization Date: 01/10/21 06:53. L & D Note. - General Info. Date of Service: 01/10/21. Mother's Due Date: 01/24/21. - Delivery Note. Labor: Spontaneous, Augmented by ARM. Delivery Outcome: Livebirth (Male liveborn 01/10/2021 at 0640 hrs. weight 3050 g 6 pounds 11.6 ounces Apgars 8/9 SONU). Infant Delivery Method: Spontaneous Vaginal Delivery-Single. Infant Delivery Mode: Spontaneous. Presentation: Left Occiput Anterior (SONU). Nuchal Cord: None. Prep: Povidone-Iodine (Betadine. Anesthesia Type: Epidural. Episiotomy Type: None. Laceration: None. Placenta: Intact, Spontaneous (01/10/2021 0644 ). Estimated Blood Loss: 100. Resuscitation Needed: No. : Suctioned, Bulb Syringe, Stimulated, Warmed, [place] Used, Warmer Used. Provider: Christian Acosta. Score 1 min: 8. Score 5 min: 9. - General Info. Date of Service: 01/10/21. Functional Status: Reports: Pain Controlled. - Review of Systems. General: Reports: No Symptoms. HEENT: Reports: No Symptoms. Pulmonary: Reports: No Symptoms. Cardiovascular: Reports: No Symptoms. Gastrointestinal: Reports: No Symptoms. Genitourinary: Reports: No Symptoms. Musculoskeletal: Reports: No Symptoms. Skin: Reports: No Symptoms. Neurological: Reports: No Symptoms. Psychiatric: Reports: No Symptoms. - Patient Data. Vitals - Most Recent: Last Vital Signs. Temp 98.6 F 01/10/21 03:50. Pulse 81 01/10/21 03:50. Resp 16 01/10/21 03:50. BP 134/82 01/10/21 03:50. Pulse Ox 100 01/10/21 03:50. Weight - Most Recent: 156 lb 9.6 oz. Lab Results Last 24 Hours: Laboratory Results - last 24 hr. 01/11/2104Range/Units. 04:0304:06. WBC 11.35 H (3.98-10.04) K/mm3. RBC 4.11 (3.98-5.22) M/mm3. Hgb 9.9 L (11.2-15.7) gm/dl. Hct 32.6 L (34.1-44.9) %. MCV 79.3 L D (79.4-94.8) fl. MCH 24.1 L (25.6-32.2) pg. MCHC 30.4 L (32.2-35.5) g/dl. RDW Std Deviation 42.9 (36.4-4 6.3) fL. Plt Count 221 (182-369) K/mm3. MPV 9.6 (9.4-12.3) fl. Neut % (Auto) 73.4 H (34.0-71.1) %. Lymph % (Auto) 16.9 L (19.3-51.7) %. [place] % (Auto) 7.2 (4.7-12.5) %. Eos % (Auto) 1.3 (0.7-5.8). Baso % (Auto) 0.2 (0.1- 1.2) %. Neut # (Auto) 8.33 H (1.56-6.13) K/mm3. Lymph # (Auto) 1.92 (1.18- 3.74) K/mm3. [place] # (Auto) 0.82 H (0.24-0.36) K/mm3. Eos # (Auto) 0.15 (0.04-0.36) K/mm3. Baso # (Auto) 0.02 (0.01-0.08) K/mm3. Manual Slide Review Abnormal smear. SARS-CoV-2 RNA (GEOFF) Negative (NEGATIVE). Med Orders - Current: Current Medications. Diphenhydramine HCl (Diphenhydramine 50 Mg/Ml Sdv) 25 mg IVPUSH Q6H PRN. PRN Reason: pruritis. Ephedrine Sulfate (Ephedrine 50 Mg/Ml Sdv) 5 mg IVPUSH ASDIRECTED PRN. PRN Reason: Hypotension. Fentanyl (Fentanyl 100 Mcg/2 Ml Sdv) 100 mcg EPIDUR Q3H PRN. PRN Reason: Pain. Last Admin: 01/10/21 04:41 Dose: 100 mcg. Documented by: Fentanyl/Bupivacaine HCl (Bupivacaine/Fentanyl/Ns 100 Ml Bag) 100 ml EPIDUR ASDIRECTED PRN. PRN Reason: Pain. Last Admin: 01/10/21 04:42 Dose: 100 ml. Documented by: Lactated Ringer's (Ringers, Lactated) 1,000 mls @ 100 mls/hr IV ASDIRECTED ERIN. Last Admin: 01/10/21 04:45 Dose: 100 mls/hr. Documented by: Oxytocin/Lactated Ringer's (Pitocin In Lr 10 Units/1,000 Ml) 10 unit in 1,000 mls @ 500 mls/hr IV .CONTINUOUS ERIN. Oxytocin/Lactated Ringer's (Pitocin In Lr 10 Units/1,000 Ml) 10 unit in 1,000 mls @ 12 mls/hr IV TITRATE ERIN; Protocol. Nalbuphine HCl (Nalbuphine 10 Mg/1 Ml Vial) 10 mg IVPUSH Q2H PRN. PRN Reason: Pain. Ondansetron HCl (Ondansetron 4 Mg/2 Ml Sdv) 4 mg IVPUSH Q4H PRN. PRN Reason: Nausea/Vomiting. Sodium Chloride (Sodium Chloride 0.9% 10 Ml Syringe) 10 ml FLUSH ASDIRECTED PRN. PRN Reason: Keep Vein Open. Discontinued Medications. Fentanyl (Fentanyl 100 Mcg/2 Ml Sdv) Confirm Administered Dose 100 mcg .ROUTE .STK-MED ONE. Stop: 01/10/21 04:27. Fentanyl/Bupivacaine HCl (Bupivacaine/Fentanyl/Ns 100 Ml Bag) Confirm Administered Dose 100 ml .ROUTE .STK-MED ONE. Stop: 01/10/21 04:27. Lidocaine HCl (Lidocaine 1% 50 Ml Mdv) 1 ml INJECT ONETIME ONE. Stop: 01/10/21 04:01. - Exam. General: Alert, Oriented. HEENT: Pupils Equal, Mucous Membr. Moist/[place]. Neck: Supple. Lungs: Clear to Auscultation, Normal Respiratory Effort. Cardiovascular: Regular Rate, Regular Rhythm. GI/Abdominal Exam: Normal Bowel Sounds, Soft, Non-Tender. (Female) Exam: Normal External Exam. Extremities: Normal Inspection, Non- Tender, No Pedal Edema, Normal Capillary Refill. Skin: Warm, Dry, Intact. Psy/Mental Status: Alert, Normal Affect, Normal Mood. - Problem List & Annotations. (1) 38 weeks gestation of . SNOMED Code(s): 30191890. Code(s): Z3A.38 - 38 WEEKS GESTATION OF Status: Acute Current Visit: No. (2) Nuchal cord without compression, delivered, current hospitalization. SNOMED Code(s): 68788334, 418193794. Code(s): O69.81X0 - LABOR AND DEL COMP BY CORD AROUND NECK, W/O COMPRSN, UNSP Status: Acute Cur rent Visit: Yes. (3) Vaginal delivery. SNOMED Code(s): 382263364. Code(s): O80 - ENCOUNTER FOR FULL-TERM UNCOMPLICATED DELIVERY Status: Acute Current Visit: No. - Problem List Review. Problem List Initiated/Reviewed/Updated: No. - My Orders. Last 24 Hours: My Active Orders. 01/10/21 04:00. Lactated Ringers [Ringers, Lactated] 1,000 ml IV ASDIRECTED. Nalbuphine [Nubain] 10 mg IVPUSH Q2H PRN. Ondansetron [Zofran] 4 mg IVPUSH Q4H PRN. Oxytocin/Lactated Ringers [Pitocin in LR 10 Units/1,000 ML] 10 unit in 1,000 ml IV .CONTINUOUS. Oxytocin/Lactated Ringers [Pitocin in LR 10 Units/1,000 ML] 10 unit in 1,000 ml IV TITRATE. Sodium Chloride 0.9% [Saline Flush] 10 ml FLUSH ASDIRECTED PRN. 01/10/21 04:01. Activity as Tolerated [RC] PFP. Communication Order [RC] ASDIRECTED. Heart Tones [RC] ASDIRECTED. Notify Provider [RC] PFP. Notify Provider [RC] PRN. Peripheral IV Care [RC] . DIRECTED. Electronic Heart Tones Ext w TOCO [WOMSER] Routine. Electronic Heart Tones Internal [WOMSER] Per Unit Routine. Peripheral IV Insertion Adult [OM.PC] Routine. 01/10/21 04:06. RAPID PLASMA REAGIN,RPR [CHEM] Routine. TYPE AND SCREEN [BBK] Stat. 01/10/21 Breakfast. Regular Diet [DIET]. - Plan. Plan:: Plan delivery Diagnosis: Stroke: No - Discharge Data Discharge Date: 01/11/21 Discharge Disposition: Home, Self-Care 01 Condition: Good - Referral to Home Health Primary Care Physician: Christian Acosta MD - Discharge Diagnosis/Problem(s) (1) 38 weeks gestation of SNOMED Code(s): 96942823 ICD Code: Z3A.38 - 38 WEEKS GESTATION OF Status: Acute Current Visit: No (2) Nuchal cord without compression, delivered, current hospitalization SNOMED Code(s): 76491238, 994509096 ICD Code: O69.81X0 - LABOR AND DEL COMP BY CORD AROUND NECK, W/O COMPRSN, UNSP Status: Acute Current Visit: Yes (3) Vaginal delivery SNOMED Code(s): 355920835 ICD Code: O80 - ENCOUNTER FOR FULL-TERM UNCOMPLICATED DELIVERY Status: Acute Current Visit: No - Patient Instructions Diet: Usual Diet as Tolerated Driving: Do Not Drive (x48 hrs) Showering/Bathing: May Shower Notify Provider of: Fever, Increased Pain, Swelling and Redness, Drainage, Nausea and/or Vomiting - Discharge Plan *PRESCRIPTION DRUG MONITORING PROGRAM REVIEWED*: Not Applicable *COPY OF PRESCRIPTION DRUG MONITORING REPORT IN PATIENT [place]: Not Applicable Home Medications: Home Meds Vit with Ca/FA/Iron [ Plus Iron] 1 each PO DAILY tablet 09/06/17 [Rx] Acetaminophen [Tylenol] 650 mg PO Q6H PRN tablet 01/11/21 [Rx] Benzocaine/Menthol [Dermoplast Pain Relief [place]] 1 spray TOP ASDIRECTED PRN canister 01/11/21 [Rx] Docusate Sodium [Colace] 100 mg PO BID PRN cap 01/11/21 [Rx] Ibuprofen [Motrin] 600 mg PO Q6H PRN tablet 01/11/21 [Rx] witch Ariadna [Tucks] 1 pad TOP ASDIRECTED PRN pad 01/11/21 [Rx] Patient Handouts: and Inducing , Care After Vaginal Delivery - Discharge Summary/Plan Comment DC Time >30 min.: No - Patient Data Vitals - Most Recent: Last Vital Signs Temp 97.7 F 01/11/21 04:17 Pulse 78 01/11/21 04:17 Resp 14 01/11/21 04:17 BP 116/79 01/11/21 04:17 Pulse Ox 98 01/11/21 04:17 Weight - Most Recent: 156 lb 9.6 oz I&O - Last 24 hours: Intake & Output 01/10/21 01/11/21 01/11/21 22:59 06:59 14:59 Intake Total 2100 Balance 2100 Lab Results - Last 24 hrs: Laboratory Results - last 24 hr 01/10/21 01/11/21 Range/Units 04:06 04:58 WBC 10.70 H (3.98-10.04) K/mm3 RBC 3.65 L (3.98-5.22) M/mm3 Hgb 8.8 L (11.2-15.7) gm/dl Hct 29.3 L (34.1-44.9) % MCV 80.3 (79.4-94.8) fl MCH 24.1 L (25.6-32.2) pg MCHC 30.0 L (32.2-35.5) g/dl RDW Std Deviation 43.6 (36.4-46.3) fL Plt Count 188 (182-369) K/mm3 MPV 9.8 (9.4-12.3) fl Neut % (Auto) 71.1 (34.0-71.1) % Lymph % (Auto) 19.3 (19.3-51.7) % [place] % (Auto) 7.0 (4.7-12.5) % Eos % (Auto) 1.5 (0.7-5.8) Baso % (Auto) 0.3 (0.1-1.2) % Neut # (Auto) 7.61 H (1.56-6.13) K/mm3 Lymph # (Auto) 2.06 (1.18-3.74) K/mm3 [place] # (Auto) 0.75 H (0.24-0.36) K/mm3 Eos # (Auto) 0.16 (0.04-0.36) K/mm3 Baso # (Auto) 0.03 (0.01-0.08) K/mm3 RPR Non-reactive (NONREACTIVE) Med Orders - Current: Current Medications Acetaminophen (Acetaminophen 325 Mg Tab) 650 mg PO Q4H PRN PRN Reason: mild pain or fever Benzocaine/Menthol (Benzocaine/Menthol 20%-0.5% [place] 56 Gm Canister) 0 gm TOP ASDIRECTED PRN PRN Reason: Perineal Comfort Measure Docusate Sodium (Docusate Sodium 100 Mg Cap) 100 mg PO BID PRN PRN Reason: Constipation Ibuprofen (Ibuprofen 600 Mg Tab) 600 mg PO Q4H PRN PRN Reason: Mild pain or fever Witch Ariadna (Witch Ariadna Medicated Pads 40/Jar) 1 pad TOP ASDIRECTED PRN PRN Reason: Perineal Comfort Measure Discontinued Medications Bupivacaine HCl (Bupivacaine 0.25% 10 Ml Sdv) 10 ml .ROUTE .STK-MED ONE Stop: 01/10/21 00:01 Diphenhydramine HCl (Diphenhydramine 50 Mg/Ml Sdv) 25 mg IVPUSH Q6H PRN PRN Reason: pruritis Ephedrine Sulfate (Ephedrine 50 Mg/Ml Sdv) 5 mg IVPUSH ASDIRECTED PRN PRN Reason: Hypotension Fentanyl (Fentanyl 100 Mcg/2 Ml Sdv) Confirm Administered Dose 100 mcg .ROUTE .[employer] ONE Stop: 01/10/21 04:27 Fentanyl (Fentanyl 100 Mcg/2 Ml Sdv) 100 mcg EPIDUR Q3H PRN PRN Reason: Pain Last Admin: 01/10/21 04:41 Dose: 100 mcg Documented by: Fentanyl/Bupivacaine HCl (Bupivacaine/Fentanyl/Ns 100 Ml Bag) Confirm Administered Dose 100 ml .ROUTE .[employer] ONE Stop: 01/10/21 04:27 Fentanyl/Bupivacaine HCl (Bupivacaine/Fentanyl/Ns 100 Ml Bag) 100 ml EPIDUR ASDIRECTED PRN PRN Reason: Pain Last Admin: 01/10/21 04:42 Dose: 100 ml Documented by: Lactated Ringer's (Ringers, Lactated) 1,000 mls @ 100 mls/hr IV ASDIRECTED ERIN Last Admin: 01/10/21 04:45 Dose: 100 mls/hr Documented by: Oxytocin/Lactated Ringer's (Pitocin In Lr 10 Units/1,000 Ml) 10 unit in 1,000 mls @ 500 mls/hr IV .CONTINUOUS ERIN Oxytocin/Lactated Ringer's (Pitocin In Lr 10 Units/1,000 Ml) 10 unit in 1,000 mls @ 12 mls/hr IV TITRATE ERIN; Protocol Lidocaine HCl (Lidocaine 1% 50 Ml Mdv) 1 ml INJECT ONETIME ONE Stop: 01/10/21 04:01 Nalbuphine HCl (Nalbuphine 10 Mg/1 Ml Vial) 10 mg IVPUSH Q2H PRN PRN Reason: Pain Ondansetron HCl (Ondansetron 4 Mg/2 Ml Sdv) 4 mg IVPUSH Q4H PRN PRN Reason: Nausea/Vomiting Sodium Chloride (Sodium Chloride 0.9% 10 Ml Syringe) 10 ml FLUSH ASDIRECTED PRN PRN Reason: Keep Vein Open
== END 2021-01-11 10:45 | disposition home or self-care (01) | DRG 560 ==
LOC: JD.OBCHECK 03:43 → JD.OB 03:49 → JD.OBCHECK 03:50 → JD.OB 03:50 → OBSVTOIN 06:40 → JD.OB 06:41
PROVIDERS: ADMIT Obstetrics & Gynecology; ATTEND Obstetrics & Gynecology
PROC: 10E0XZZ Delivery of Products of Conception, External Approach (ICD-10-PCS; principal; 2021-01-10)
PROC: 3E0R3BZ Introduction of Anesthetic Agent into Spinal Canal, Percutaneous Approach (ICD-10-PCS; 2021-01-10)
DX: O69.81X0 Labor and delivery complicated by cord around neck, without compression, not applicable or unspecified (principal); Z3A.38 38 weeks gestation of pregnancy; Z37.0 Single live birth; Z88.1 Allergy status to other antibiotic agents; Z20.822 Contact with and (suspected) exposure to COVID-19
CPT/HCPCS: 01967; 36415; 51701; 59025; 59409; 85025; 86592; 86850; 86900; 86901; J3010; J3490; J7120; U0002

== ENCOUNTER 2022-05-26 20:51 | Emergency (ER) | payer BC | END 2022-05-27 00:21 | disposition home or self-care (01) | LOC: JD.ED 20:51 → JD.OBCHECK 20:51 → EDSTATUS 20:55 → JD.ED 05-27 00:21 | DX: O99.513 Diseases of the respiratory system complicating pregnancy, third trimester (principal); O99.013 Anemia complicating pregnancy, third trimester; R06.02 Shortness of breath; Z3A.38 38 weeks gestation of pregnancy; Z79.899 Other long term (current) drug therapy | CPT/HCPCS: 36415; 59025; 71045; 71045-26; 80053; 85025; 85379; 93005; 99285 ==

== ENCOUNTER 2022-06-01 06:49 | Inpatient (IN) | payer BC ==
[2022-06-01] MEDS ORDERED: Ondansetron 4 MG/2 ML SDV IVPUSH PRN (06:56)
[2022-06-01] MEDS ORDERED: Calcium Carbonate 500 MG Tab.Chew PO PRN (06:56)
[2022-06-01] MEDS ORDERED: Nalbuphine HCl 10 MG/ 1ML Amp IVPUSH PRN (06:56)
[2022-06-01] MEDS ORDERED: Oxytocin/Lactated Ringers 10 UNIT/1,000 ML BAG IV SCH ×2 (07:00→11:00)
[2022-06-01] MEDS: Lactated Ringers 1,000 ML IV SCH ×3 (07:11→09:01)
[2022-06-01] MEDS ORDERED: fentaNYL 100 MCG/2 ML SDV EPIDUR PRN (08:00)
[2022-06-01] MEDS ORDERED: diphenhydrAMINE 50 MG/ML SDV IVPUSH PRN (08:00)
[2022-06-01] MEDS ORDERED: Bupivacaine/fentaNYL/NS 100 ML Bag EPIDUR PRN (08:00)
[2022-06-01] MEDS ORDERED: ePHEDrine 50 MG/ML SDV IVPUSH PRN (08:00)
[2022-06-01] MEDS ORDERED: Bupivacaine 0.25% 10 ML SDV ONE (09:00)
[2022-06-01] MEDS ORDERED: Witch Hazel Medicated Pads 40/Jar TOP PRN (12:46)
[2022-06-01] MEDS ORDERED: Benzocaine/Menthol 20%-0.5% Spray 78 GM Cannister TOP PRN (12:46)
[2022-06-01] MEDS ORDERED: Acetaminophen 325 MG Tab PO PRN (12:46)
[2022-06-01] MEDS ORDERED: Ibuprofen 600 MG Tab PO PRN (12:46)
== END 2022-06-02 13:20 | disposition home or self-care (01) | DRG 560 ==
LOC: JD.OBCHECK 06:49 → JD.OB 06:50 → JD.OBCHECK 06:56 → JD.OB 06:56 → JD.MS 12:39 → OBSVTOIN 12:42 → JD.MS 12:44 → JD.OB 20:42
PROVIDERS: ADMIT Obstetrics & Gynecology; ATTEND Obstetrics & Gynecology
PROC: 10E0XZZ Delivery of Products of Conception, External Approach (ICD-10-PCS; principal; 2022-06-01)
PROC: 0HQ9XZZ Repair Perineum Skin, External Approach (ICD-10-PCS; 2022-06-01)
PROC: 3E0R3BZ Introduction of Anesthetic Agent into Spinal Canal, Percutaneous Approach (ICD-10-PCS; 2022-06-01)
DX: O70.0 First degree perineal laceration during delivery (principal); Z3A.38 38 weeks gestation of pregnancy; Z37.0 Single live birth
CPT/HCPCS: 36415; 51702; 59025; 59409; 85027; 86592; 86850; 86900; 86901; J2590; J3010; J3490; J7120

== ENCOUNTER 2022-12-06 15:03 | Emergency (ER) | payer BC | END 2022-12-06 17:31 | disposition home or self-care (01) | LOC: JD.ED 15:03 | DX: K21.9 Gastro-esophageal reflux disease without esophagitis (principal); Z88.8 Allergy status to other drugs, medicaments and biological substances | CPT/HCPCS: 36415; 76705; 76705-26; 83690; 99284 ==

== ENCOUNTER 2023-03-17 21:42 | Emergency (ER) | payer BC ==
[2023-03-17] MEDS ORDERED: Ondansetron 4 MG/2 ML SDV IVPUSH ONE (21:59)
[2023-03-17 22:14] LABS: BASOPHILS ABSOLUTE AUTO 0.02 K/mm3 (0.01-0.08); BASOPHILS PERCENT AUTO 0.2 % (0.1-1.2); EOSINOPHILS ABSOLUTE AUTO 0.25 K/mm3 (0.04-0.36); EOSINOPHILS PERCENT AUTO 2.8 (0.7-5.8); HEMATOCRIT 38.9 % (34.1-44.9); HEMOGLOBIN 12.7 gm/dl (11.2-15.7); IMMATURE GRAN ABSOLUTE AUTO 0.01 K/mm3 (0.00-0.10); IMMATURE GRAN PERCENT AUTO 0.1 % (<=1.0); LYMPHOCYTES ABSOLUTE AUTO 1.93 K/mm3 (1.18-3.74); LYMPHOCYTES PERCENT AUTO 21.7 % (19.3-51.7); MEAN CORPUSCULAR HEMOGLOBIN 28.1 pg (25.6-32.2); MEAN CORPUSCULAR HGB CONC 32.6 g/dl (32.2-35.5); MEAN CORPUSCULAR VOLUME 86.1 fl (79.4-94.8); MEAN PLATELET VOLUME 9.4 fl (9.4-12.3); MONOCYTES ABSOLUTE AUTO 0.65 K/mm3 (0.24-0.36); MONOCYTES PERCENT AUTO 7.3 % (4.7-12.5); NEUTROPHILS ABSOLUTE AUTO 6.04 K/mm3 (1.56-6.13); NEUTROPHILS PERCENT AUTO 67.9 % (34.0-71.1); PLATELET COUNT,PLT 226 K/mm3 (182-369); RED BLOOD CELL COUNT 4.52 M/mm3 (3.98-5.22)
[2023-03-17 22:35] LABS: A/G RATIO 1.1 (1-2); ALANINE AMINOTRANSFERASE,ALT 19 U/L (14-59); ALBUMIN 3.9 g/dl (3.4-5.0); ALKALINE PHOSPHATASE 56 U/L (46-116); ANION GAP 11.8 (5-15); ASPARTATE AMNIOTRANSFERASE,AST 19 U/L (15-37); BILIRUBIN TOTAL 0.2 mg/dL (0.2-1.0); BLOOD UREA NITROGEN,BUN 24 mg/dL (7-18); BUN/CREATININE RATIO 21.8 (14-18); C-REACTIVE PROTEIN <0.2 mg/dL (<1.0); CALCIUM 8.9 mg/dL (8.5-10.1); CARBON DIOXIDE,CO2 27 mEq/L (21-32); CHLORIDE,CL 103 mEq/L (98-107); CREATININE 1.1 mg/dL (0.55-1.02); EST CRCL DRUG DOSING (CG) 62.82 mL/min; ESTIMATED GFR 68 mL/min (>60); GLUCOSE RANDOM 98 mg/dL (70-99); LIPASE 98 U/L (73-393); POTASSIUM,K 3.8 mEq/L (3.5-5.1); PROTEIN TOTAL,TP 7.5 g/dl (6.4-8.2); SODIUM,NA 138 mEq/L (136-145)
== END 2023-03-18 00:07 | disposition home or self-care (01) ==
LOC: JD.ED 21:42
DX: R10.10 Upper abdominal pain, unspecified (principal); J45.909 Unspecified asthma, uncomplicated; Z88.8 Allergy status to other drugs, medicaments and biological substances
CPT/HCPCS: 36415; 80053; 83690; 83735; 85025; 86140; 99284